=== PATIENT | female | born 1980 | race Asian ===

== ENCOUNTER 2018-04-04 11:18 | Emergency (ER) | payer OTHER ==
[~2018-04-04] VITALS: Ht 157.5 cm; Wt 79.8 kg
[2018-04-04 11:24] VITALS: Ht 157.5 cm; Wt 79.8 kg
[2018-04-04 11:51] VITALS: BP 144/75
== END 2018-04-04 11:51 | disposition home or self-care (01) ==
LOC: ED 11:18
DX: R07.89 Other chest pain (principal)